=== PATIENT | male | born 1975 | race African-American/Black ===

== ENCOUNTER 2021-06-30 13:26 | Emergency (ER) | payer OTHER, SELFPAY ==
--- NOTE | ~2021-06-30 | XR_ITS ---
EXAMINATION: XR shoulder LT min 2V INDICATION: Left shoulder pain TECHNIQUE: Four views of the left shoulder are submitted. COMPARISON: None FINDINGS: Normal alignment. No fracture. Glenohumeral and acromioclavicular joint spaces are normal. Soft tissues are unremarkable. IMPRESSION: 1. No acute osseous abnormality. Reviewed, dictated and finalized at location B.
[2021-06-30 13:40] VITALS: BP 121/72; PULSE 70; RESP 14; TEMP 36.8; O2SAT 100
--- NOTE | 2021-06-30 14:36 | ED.UPPEXIN ---
HPI - Extremity Injury (Upper) General Chief Complaint: Extremity Injury, Upper Stated Complaint: left shoulder pain Time Seen by Provider: 06/30/21 13:50 History of Present Illness HPI narrative: Patient is a 45-year-old male who presents ER with left shoulder pain. Worsening over the last couple weeks. No known injury. No numbness or tingling to the arm or leg. Worse with range of motion and lifting. No swelling or redness. Denies fevers or chills or sweats. No improvement with tramadol. Related Data Allergies Allergy/AdvReac Type Severity Reaction Status Date / Time No Known Allergies Allergy Verified 06/30/21 14:11 Review of Systems Review of Systems: All systems reviewed & are unremarkable except as noted in HPI and below Constitutional: Constitutional: Denies chills and Denies fever(s) Musculoskeletal: Musculoskeletal: Denies back pain, Reports arthralgias, Denies joint swelling and Denies muscle cramps Integumentary/Breasts: Skin/Breast: Denies erythema and Denies rash Neurologic: Denies focal weakness and Denies numbness PMFSH Past Medical History Medical History (Updated 06/30/21 @ 14:48 by Frank Saba MD) Healthy adult male Surgical History Surgical History (Updated 06/30/21 @ 14:48 by Frank Saba MD) No history of previous surgery Social History Social History (Updated 08/31/19 @ 21:00 by Guille Rivera MD) Smoking status: Current every day smoker Alcohol use details: Socially Substance use: never Exam Narrative: GENERAL: Well-appearing, well-nourished, and in no acute distress. HEAD: Normocephalic, atraumatic. EXTREMITIES: Focused exam left upper extremity at the shoulder reveals increased discomfort posterior to the shoulder with external rotation. Patient has normal forward flexion. He has increased pain with abduction at the shoulder when he starts to go past 90 degrees. Patient also is unable to internally rotate and reach backwards towards the midline of his back without having significant pain and can fairly get past his waist. Normal range of motion at the elbow and wrist. Shoulder without point tenderness with palpation. No swelling noted. SKIN: Warm, dry, no rash. NEURO: Alert and oriented x3. PSYCH: Normal mood and affect. Course Course Emergency Course: Discussed diagnosis and treatment plan. Patient verbalized understanding. Recommend follow-up with orthopedic surgery or PCP depending on who can get him in. Discussed that he may require steroid injection of the shoulder and potentially physical therapy. Vital Signs Vital signs: Vital Signs Temperature 98.3 F 06/30/21 13:40 Pulse Rate 70 06/30/21 13:40 Respiratory Rate 14 06/30/21 13:40 Blood Pressure 121/72 06/30/21 13:40 Pulse Oximetry 100 06/30/21 13:40 Temperature 98.3 F 06/30/21 13:40 Pulse Rate 70 06/30/21 13:40 Respiratory Rate 14 06/30/21 13:40 Blood Pressure 121/72 06/30/21 13:40 Pulse Oximetry 100 06/30/21 13:40 Discharge Plan Discharge Clinical Impression: Adhesive capsulitis of left shoulder Patient Disposition: Home, Self-Care Condition: Stable Instructions: Antibiotic Form, Adhesive Capsulitis (ED) Additional Instructions: Return to the ER if you have fever over 100.4 ?F, you cannot keep down food or water, you lose consciousness, you have additional concerns. Take anti-inflammatories help with the discomfort. You may also take muscle relaxers to help as well. You will need to perform stretching exercises to increase range of motion. Recommend you follow-up with an orthopedic surgeon for additional evaluation to receive definitive care. You may require physical therapy. Prescriptions: New cyclobenzaprine 10 mg tablet 10 mg PO TID PRN (Reason: muscle spasm) Qty: 20 RF: 0 naproxen 375 mg tablet 375 mg PO BID Qty: 14 RF: 0 No Action hydrocodone-acetaminophen 5-325 mg tablet 1 tablet PO Q6H PRN (Re
== END 2021-06-30 14:49 | disposition home or self-care (01) ==
PROVIDERS: Emergency Provider Emergency Medicine
DX: M75.02 Adhesive capsulitis of left shoulder (principal); F17.200 Nicotine dependence, unspecified, uncomplicated
CPT/HCPCS: 73030; 99283

== ENCOUNTER 2021-08-26 09:48 | Emergency (ER) | payer OTHER, SELFPAY ==
[2021-08-26 10:00] VITALS: BP 135/84; PULSE 89; RESP 16; TEMP 36.6; O2SAT 99
--- NOTE | 2021-08-26 10:05 | ED.GENADULT ---
HPI - General Adult General Stated complaint: knot in neck Source: patient Mode of arrival: ambulatory History of Present Illness HPI narrative: This is a 46-year-old gentleman that presents with some swollen lymph nodes mildly tender on the right side or tender with palpation easily movable does have some tooth decay on the right side upper and lower molars and premolars with surrounding gum inflammation there is no ear aches, no fever chills no swollen tonsil, no shortness of breath. Onset (ago): day(s) Related Data Allergies Allergy/AdvReac Type Severity Reaction Status Date / Time No Known Allergies Allergy Verified 06/30/21 14:11 Review of Systems Review of Systems: All systems reviewed & are unremarkable except as noted in HPI and below PMFSH Past Medical History Medical History Healthy adult male Surgical History Surgical History No history of previous surgery Social History Social History Smoking status: Current every day smoker Alcohol use details: Socially Substance use: never Exam Const: General: no acute distress and alert Orientation/consciousness: patient oriented x3 HENMT: Head: normal to inspection Other: Tender swollen cervical lymph nodes 3 distinct lymph nodes easily movable tender with palpation, Have some swollen tender gums, right lower mouth Eyes: Conjunctivae: conjunctivae normal Pupils: Equal, round and reactive pupils present Neck: Neck: normal visual inspection and no lymphadenopathy Chest: Chest palpation & inspection: normal inspection of the chest Resp: Effort & Inspection: normal respiratory effort Cardio: Rate: regular rate Rhythm: regular rhythm GI: GI Palp: Yes Soft to palpation Urinary Catheter: Urinary Catheter: patent and draining Back/Spine/Pelvis: Back: no CVA tenderness Skin: General skin exam: normal color Rashes: no rashes Neuro: General: patient oriented x3, moves all extremities and no meningeal signs Extrem: General: normal to inspection Psych: Mental Status: mental status grossly normal Course Course Emergency Course: patient examined does have some tooth decay on the right upper and lower premolar and molar area, does have a swollen nodes on the on the right, discussed taking antibiotics and follow up with his primary care physician within 1 to 2 weeks further evaluation and treatment. Critical Care Time Critical Care Time Critical Care Time: No Discharge Plan Discharge Clinical Impression: Acute lymphadenitis Patient Disposition: Home, Self-Care Condition: Stable Instructions: Antibiotic Form, Adenitis (ED) Additional Instructions: take antibiotics as prescribed, can use warm compresses along with Tylenol or Motrin for pain and inflammation. Prescriptions: New amoxicillin-pot clavulanate [Augmentin] 875-125 mg tablet 1 tablet PO Q12H Qty: 20 RF: 0 No Action hydrocodone-acetaminophen 5-325 mg tablet 1 tablet PO Q6H PRN (Reason: pain) Qty: 12 RF: 0 cyclobenzaprine 10 mg tablet 10 mg PO TID PRN (Reason: muscle spasm) Qty: 20 RF: 0 naproxen 375 mg tablet 375 mg PO BID Qty: 14 RF: 0 Follow-up/Referrals: Ulices Quintero MD [Primary Care Provider] - Time of Disposition: 10:10
== END 2021-08-26 10:18 | disposition home or self-care (01) ==
PROVIDERS: Emergency Provider Emergency Medicine; PCP Plastic Surgery
DX: I88.9 Nonspecific lymphadenitis, unspecified (principal)
CPT/HCPCS: 99283

== ENCOUNTER 2021-10-10 01:43 | Emergency (ER) | payer OTHER, SELFPAY ==
[2021-10-10 01:45] VITALS: BP 116/77; PULSE 78; RESP 16; TEMP 36.8; O2SAT 98
--- NOTE | 2021-10-10 01:49 | ED.DENTAL ---
HPI - Dental/Oral General Stated complaint: BOTTOM LEFT TOOTH PAIN Time Seen by Provider: 10/10/21 01:49 Source: patient and RN notes reviewed Mode of arrival: ambulatory Limitations: no limitations History of Present Illness Complaint: tooth pain Location: Tooth # (22) Onset (ago): day(s) (2) Duration: constant Severity: moderate Relieving factors: nothing Context: history of dental caries Treatment prior to arrival: none Related Data Allergies Allergy/AdvReac Type Severity Reaction Status Date / Time No Known Allergies Allergy Verified 10/10/21 01:54 Review of Systems Review of Systems: All systems reviewed & are unremarkable except as noted in HPI and below Constitutional: Constitutional: Denies chills and Denies fever(s) Respiratory: Respiratory: Denies cough and Denies dyspnea Gastrointestinal: Gastrointestinal: Denies diarrhea, Denies nausea and Denies vomiting PMFSH Past Medical History Medical History Healthy adult male Surgical History Surgical History No history of previous surgery Social History Social History Smoking status: Current every day smoker Alcohol use details: Socially Substance use: never Exam Const: General: healthy appearing, no acute distress and alert Nutritional Appearance: well nourished Orientation/consciousness: patient oriented x3 HENMT: Head: normal to inspection Ears: external ears normal General nose exam: Normal external nose present Face and sinus: Facial tenderness on exam of face and sinuses on the left mandible Mouth: Yes Normal oral and palatal mucosa present and Yes moist mucous membranes Teeth and gingiva: poor dentition Teeth image: 1. Surrounding erythema and edema at the base along the gumline Throat: posterior oropharynx normal Eyes: Conjunctivae: conjunctivae normal Pupils: Equal, round and reactive pupils present EOM: EOMs intact bilaterally Neck: Neck: normal visual inspection and no lymphadenopathy Resp: Effort & Inspection: normal respiratory effort Auscultation: clear to auscultation bilaterally Cardio: Rate: regular rate Rhythm: regular rhythm GI: GI Palp: Yes Soft to palpation and No Tenderness to palpation present (GI) Auscultation: normal bowel sounds Back/Spine/Pelvis: Cervical Spine: cervical ROM normal Thoracic/Lumbar Spine: thoraco-lumbar ROM normal Skin: General skin exam: normal color Rashes: no rashes Neuro: General: patient oriented x3, moves all extremities, no focal motor deficits and CN's II-XI intact bilaterally Speech: normal speech Gait exam (Neuro): Normal gait present Extrem: General: normal to inspection and no clubbing, cyanosis or edema Psych: Appearance: grossly normal and well kempt Mental Status: mental status grossly normal Affect: normal affect Attitude: cooperative Thought content: Yes Normal thought content present Discharge Plan Discharge Clinical Impression: Dental abscess Patient Disposition: Home, Self-Care Condition: Stable Instructions: Antibiotic Form, Dental Abscess (ED) Prescriptions: New amoxicillin-pot clavulanate 875-125 mg tablet 1 tablet PO Q12H 10 Days Qty: 20 RF: 0 Follow-up/Referrals: Ulices Quintero MD [Primary Care Provider] - Time of Disposition: 01:59
[2021-10-10] MEDS: AMOXICILLIN/CLAVULANATE K 875-125 MG TAB 1 TABLET PO (02:07)
== END 2021-10-10 02:20 | disposition home or self-care (01) ==
PROVIDERS: Emergency Provider Emergency Medicine; PCP Plastic Surgery
DX: K04.7 Periapical abscess without sinus (principal)
CPT/HCPCS: 99283; A9270

== ENCOUNTER 2022-07-18 02:38 | Emergency (ER) | payer OTHER, SELFPAY ==
[2022-07-18 02:38] VITALS: BP 130/90; PULSE 70; RESP 18; TEMP 37; O2SAT 98
--- NOTE | 2022-07-18 02:58 | ED.WOUNDLAC ---
HPI - Wound/Laceration General Chief Complaint: Wound/Laceration Stated Complaint: Right Eye Laceration Time Seen by Provider: 07/18/22 02:40 Source: patient and RN notes reviewed Mode of arrival: ambulatory Limitations: no limitations History of Present Illness Onset (ago): hour(s) (1) Location: face Place: home Patient tetanus UTD: No Context: accidental Associated symptoms: pain Related Data Home Medications Medication Instructions Recorded Confirmed No Home Medications 07/18/22 07/18/22 Allergies Allergy/AdvReac Type Severity Reaction Status Date / Time No Known Allergies Allergy Verified 10/10/21 01:54 Review of Systems Review of Systems: All systems reviewed & are unremarkable except as noted in HPI and below Constitutional: Constitutional: Reports no additional constitutional complaints Eyes: Eyes: Reports no additional eye complaints Comments: right eyebrow 1/4 cm superficial laceration. no other acute injury. no LOC ENT: Reports system reviewed and no additional complaints, except as documented Cardiovascular: Cardiovascular: Reports no additional cardiovascular complaints Respiratory: Respiratory: Reports no additional respiratory complaints Gastrointestinal: Gastrointestinal: Reports no additional gastrointestinal complaints Musculoskeletal: Musculoskeletal: Reports no additional musculoskeletal complaints Integumentary/Breasts: Skin/Breast: Reports system reviewed and no additional complaints, except as docu Neurologic: Reports system reviewed and no additional complaints, except as documented Psychiatric: Psychiatric: Reports no additional psychiatric complaints Endocrine: Endocrine: Reports no additional endocrine complaints Hematologic/Lymphatic: Hematologic/Lymphatic: Reports no additional hematologic/lymphatic complaints Allergic/Immunologic: Allergic/Immunologic: Reports no additional allergic/immunologic complaints PMFSH Past Medical History Medical History (Updated 07/18/22 @ 03:05 by Micheal Lizarraga MD) Head injury Healthy adult male Laceration Surgical History Surgical History No history of previous surgery Social History Social History Smoking status: Current every day smoker Alcohol use details: Socially Substance use: never Exam Const: General: no acute distress and well nourished Nutritional Appearance: well nourished Orientation/consciousness: patient oriented x3 Limitations: no limitations HENMT: Head: normal to inspection Ears: external ears normal, TM's normal bilaterally and EAC's normal Face/Nose/Sinus: Normal external nose present, Normal nares present, normal facial exam and sinuses nontender Face and sinus: normal facial exam and sinuses nontender Mouth: Yes Normal oral and palatal mucosa present and Yes moist mucous membranes Teeth and gingiva: dentition normal Throat: posterior oropharynx normal Other: 1/4 cm right eyebrow superficial laceration. no other acute injury, vision normal Eyes: Conjunctivae: conjunctivae normal Pupils: Equal, round and reactive pupils present EOM: EOMs intact bilaterally Neck: Neck: normal visual inspection, no lymphadenopathy and no meningeal signs Chest: Chest palpation & inspection: normal inspection of the chest Resp: Effort & Inspection: normal respiratory effort Auscultation: clear to auscultation bilaterally Cardio: Rate: regular rate Rhythm: regular rhythm GI: GI Palp: Yes Soft to palpation and No Tenderness to palpation present (GI) Auscultation: normal bowel sounds : General: Yes bladder normal to palpation and Yes no CVA tenderness Back/Spine/Pelvis: Back: no CVA tenderness Skin: General skin exam: normal color Rashes: no rashes Wounds: no wounds Neuro: General: patient oriented x3, moves all extremities, no meningeal signs, no focal motor deficits and CN's
[2022-07-18] MEDS: TETANUS,DIPHTHERIA,AC PERTUSSIS ADULT 0.5 ML (ADACEL) IM (03:01)
[2022-07-18 03:07] VITALS: BP 130/88; PULSE 88; RESP 18; TEMP 37.2; O2SAT 97
== END 2022-07-18 03:07 | disposition home or self-care (01) ==
PROVIDERS: Emergency Provider Emergency Medicine; PCP Plastic Surgery
DX: S09.90XA Unspecified injury of head, initial encounter (principal)
CPT/HCPCS: 12011; 90471; 90715; 99282

== ENCOUNTER 2023-09-27 01:45 | Emergency (ER) | payer OTHER, SELFPAY ==
[2023-09-27 01:45] VITALS: BP 126/80; PULSE 102; RESP 18; TEMP 36.5; O2SAT 98
--- NOTE | 2023-09-27 01:54 | ED.ANIMALBIT ---
HPI - Animal Bite General Stated Complaint: dog bite Time Seen by Provider: 09/27/23 01:54 Source: patient Mode of arrival: ambulatory Limitations: no limitations History of Present Illness HPI narrative: 48-year-old male presents to the ER with -- dog bite on his left thenar eminence 1 hour prior to coming to the ER. Patient was taking his dog out for a walk when the other dog came and bit him. He has 2 puncture toro over his left thenar eminence and 1 on the other side of the hand. The immunization status of the dog is unknown. MD complaint: animal bite ( Dog bite) and animal-related injury Onset (ago): hour(s) ( 1 hour ago) Animal: dog Description of animal: unknown animal Mechanism: bite Location: other ( left hand thenar eminence) Location - Extremities: Left: hand Context: unprovoked Associated symptoms: none Related Data Patient tetanus UTD: Yes Home Medications Medication Instructions Recorded Confirmed No Home Medications 07/18/22 07/18/22 Allergies Allergy/AdvReac Type Severity Reaction Status Date / Time No Known Allergies Allergy Verified 10/10/21 01:54 Review of Systems Review of Systems: All systems reviewed & are unremarkable except as noted in HPI and below [facility] Past Medical History Medical History Head injury Healthy adult male Laceration Surgical History Surgical History No history of previous surgery Social History Social History Smoking status: Current every day smoker Alcohol use details: Socially Substance use: never Living arrangements: with family Exam Const: General: cooperative, healthy appearing and comfortable HENMT: Head: normal to inspection, normocephalic and atraumatic Ears: hearing grossly normal bilaterally and external ears normal Face/Nose/Sinus: Normal external nose present and Normal nares present Face and sinus: normal facial exam and sinuses nontender Mouth: Yes Normal oral and palatal mucosa present and Yes lip normal Throat: posterior oropharynx normal Eyes: General: appearance normal, both eyes and all related structures Neck: Neck: normal visual inspection, full ROM, no lymphadenopathy, no meningeal signs and trachea midline Thyroid: thyroid normal Carotids: normal carotid upstroke Lymphatic: no lymphadenopathy noted Chest: Chest palpation & inspection: normal inspection of the chest Resp: Effort & Inspection: normal respiratory effort Auscultation: clear to auscultation bilaterally Cardio: Palpation: normal PMI Rate: regular rate Rhythm: regular rhythm Heart sounds: S1 normal heart sound present and S2 normal heart sound present GI: Inspection: normal to inspection Auscultation: other ( no tenderness/ rigidity /rebound.) : General: Yes no CVA tenderness Back/Spine/Pelvis: Back: no CVA tenderness Skin: General skin exam: normal color Lesions: other ( Puncture syl over the left thenar eminence and on corresponding dorsum) Neuro: General: oriented to person, oriented to place, oriented to time and patient oriented x3 Cranial nerves: Yes CN's II-XII intact bilaterally Speech: normal speech Extrem: General: normal to inspection, full ROM, capillary refill normal and normal exam except as noted Hand/finger images: 1. Penetrating injury over the left thenar eminence 2. puncture syl over the left back of the thenar eminence Psych: Appearance: grossly normal Course Course Emergency Course: dog bite on left Thenar eminence by a stray dog. discussed with the patient and he does not feel that the dog could be monitored for 10 days. The human deployed cell vaccine and the HRIg is not available at this facility. Vital Signs Vital signs: Vital Signs Temperature 36.5 C 09/27/23 01:45 Pulse Rate 102 H 09/27/23 01:45 Respiratory
== END 2023-09-27 02:40 | disposition short-term general hospital (02) ==
PROVIDERS: Emergency Provider Internal Medicine Critical Care Medicine; PCP Internal Medicine Gastroenterology
DX: S61.432A Puncture wound without foreign body of left hand, initial encounter (principal); W54.0XXA Bitten by dog, initial encounter
CPT/HCPCS: 99282

== ENCOUNTER 2025-07-20 14:53 | Emergency (ER) | payer OTHER, SELFPAY ==
[2025-07-20 14:53] VITALS: BP 118/59; PULSE 89; RESP 18; TEMP 36.5; O2SAT 99
--- NOTE | 2025-07-20 15:02 | ED.WOUNDLAC ---
HPI - Wound/Laceration General Chief Complaint: Wound/Laceration Stated Complaint: cut finger on left hand with knife Time Seen by Provider: 07/20/25 15:01 Source: patient Mode of arrival: ambulatory Limitations: no limitations History of Present Illness HPI narrative: LEFT INDEX LACERATION BY A KNIFE PRIOR TO ARRIVAL, ACCIDENT. UP-TO-DATE FOR TETANUS SHOT, NO OTHER INJURIES Related Data Home Medications ?Medication ?Instructions ?Recorded ?Confirmed ?Last Taken ?Type No Home Medications 07/18/22 07/20/25 Unknown History Allergies Allergy/AdvReac Type Severity Reaction Status Date / Time No Known Allergies Allergy Verified 07/20/25 14:56 Review of Systems Review of Systems: All systems reviewed & are unremarkable except as noted in HPI and below PMFSH Past Medical History Medical History Head injury Laceration Healthy adult male Surgical History Surgical History No history of previous surgery Social History Social History Smoking status: Current every day smoker Alcohol use details: Socially Substance use: never Living arrangements: with family Exam Narrative: GENERAL APPEARANCE: WELL-DEVELOPED, WELL-NOURISHED SKIN: NORMAL COLOR LEFT INDEX SHOWING 1.2 CM FLAP LACERATION, SUBCUTANEOUS VASCULAR: NORMAL PERIPHERAL PULSES, NORMAL CAPILLARY REFILL. MUSCULOSKELETAL: NORMAL RANGE OF MOTION, NONTENDER BACK NEUROLOGIC: ALERT AND ORIENTED ?3, Procedures Laceration Laceration 1: Date: 07/20/25 Site: hand Side (If applicable): left (LEFT INDEX, PALMAR SIDE, 2ND PHALANX) Size (cm): 1.2 Description: linear and flap Depth: simple, single layer Local Anesthetic: lidocaine 1% Amount of anesthesia used (mL): 5 Pre-repair: wound explored ====== Skin Level ====== Skin layer closed with: nylon Size (cm): 6-0 Number of sutures: 3 Technique: simple, interrupted ====== Subcutaneous Layer ====== Technique: simple, interrupted ====== Muscle Layer ====== ====== Tendon Layer ====== Critical Care Time Critical Care Time Critical Care Time: No Discharge Plan Discharge Clinical Impression: Finger laceration Patient Disposition: Home Condition: Stable Instructions: Finger Laceration (ED) Additional Instructions: RETURN IF SYMPTOMS ARE WORSENING , CALL YOUR FAMILY PHYSICIAN FOR APPOINTMENT, TAKE TYLENOL, IBUPROFEN NEEDED FOR ACHES AND PAIN, CONTINUE HOME MEDICATIONS. REMOVE SUTURES IN 8 DAYS Patient Language: Tristanian Prescriptions: No Action No Home Medications Follow-up/Referrals: UNKNOWN,DOCTOR [Primary Care Provider]
[2025-07-20] MEDS: NEOMYCIN/POLYMYXIN/BACITRACIN OINTMENT PACKET 1 PACKET TOPICAL (15:06)
[2025-07-20] MEDS: LIDOCAINE 1% LOCAL INJ 10 ML VIAL 5 ML INFILTRATE (15:06)
--- OUTSIDE RECORDS SUMMARY | 2025-07-20 18:12 | XMS_ITS | Clinical Summary ---
Author Organization [facility] Address [address] [place] [address] Care Team Providers Care Communications Marketing Intern Name Role Phone Nicole Nieto MD Primary Care Provider Unavail able Allergies No known active allergies Medications traMADol 50 MG tabletIndication s:Acute Pain < 7 Day Supply Indications : Acute Pain < 7 Day Supply 1-2 every 6 hours as needed for pain 20 tablet 06/01/2021 Active Active Problems Problem Noted Date Diagnosed Date Closed nondisplaced fracture of neck of fourth metacarpal bone of right hand with routine healing, subsequent encounter 10/27/2019 Family History Medical History Relation Comments Brain Aneurysm Father Diabetes Mother Hypertension Mother Liver Disease Mother Relation Status Comments Father Mother Alive Social History Tobacco Use Types Packs/Day Years Used Date Smoking Tobacco: Every Day Cigarettes Smokeless Tobacco: Never Alcohol Use Standard Drinks/Week Comments Not Currently 0 (1 standard drink = 0.6 oz pur e alcohol) AUDIT-C Answer Date Recorded Frequency of Alcohol Consumption Never 10/27/2019 Average Number of Drinks Not on file 020 Frequency of Binge Drinking Not on file 09/2019 Sex and Gender Information Value Date Recorded Sex Assigned at Not on file Legal Sex Male 5:53 PM [employer] Gender Identity Not on file Sexual Orientation Not on file Last Filed Vital Signs Vital Sign Reading Time Taken Comments Blood Pressure 124/65 06/01/2021 9:45 AM CDT Pulse 83 06/01/2021 9:45 AM CDT Temperature 36.9 C (98.5 F) 06/01/2021 9:45 AM CDT Respiratory Rate 18 06/01/2021 9:45 AM CDT Oxygen Saturation 100% 06/01/2021 9:45 AM CDT Inhaled Oxygen Concentration - - Weight 84 kg (185 lb 3 oz) 06/01/2021 9:45 AM CD T Height 185.4 cm (6' 1) 06/01/2021 9:45 AM CDT Body Mass Index 24.43 06/01/2021 9:45 AM CDT Plan of Treatment Health Maintenance Due Date Last Done Comments Colorectal Cancer Screening Colonoscopy (10 Years) 1976 Annual Physical 1979 Hepatitis C 1994 DTaP, Tdap and Td Vaccines ( 1 - Tdap) 1995 Hepatitis B Vaccines (1 of 3 - 19+ 3-dose series) 1995 Pneumococcal Vaccine: Pediat rics (0 to 5 Years) and At-Risk Patients (6 to 49 Years) (1 of 2 - PCV) 1995 COVID-19 Vaccine (2024-2 6 season) 2025 Influenza Adult (#1) 2025 Hepatitis A Vaccines Aged Out No long er eligible based on patient's age to complete this topic Meningococcal B Vaccine Aged Out No l onger eligible based on patient's age to complete this topic Meningococcal Vaccine Aged Out No johana rochelle eligible based on patient's age to complete this topic RSV Immunizations Under 20 Months Aged Out No longer eligible based on patient's age to complete this topic Insurance [place] Care Teams Communications Marketing Intern Relationship Specialty Start Date End Date Nicole Nieto MD PCP - General INTERNAL MEDICINE 10/27/19
--- OUTSIDE RECORDS SUMMARY | 2025-07-20 18:12 | XMS_ITS | Encounter Summary ---
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
== END 2025-07-20 15:35 | disposition home or self-care (01) ==
LOC: CHSED 15:41
PROVIDERS: Emergency Provider Emergency Medicine; Referring Provider Internal Medicine
DX: S61.412A Laceration without foreign body of left hand, initial encounter (principal); W26.0XXA Contact with knife, initial encounter
CPT/HCPCS: 12001; 99282; J2003